=== PATIENT | male | born 1965 | race Caucasian/White ===

== ENCOUNTER 2024-11-22 13:09 | Emergency (ER) | payer MEDICAID ==
[~2024-11-22] VITALS: Ht 180.3 cm; Wt 78.0 kg
[~2024-11-22 13:09] MED LIST: APIX5TAB PO; CARV25TA47 PO; FURO40TA5 PO; GLIP5TAB22 PO; LISI-186 PO; METF-416 PO; SIMV-43 PO; SPIR25TA6 PO
[2024-11-22 13:11] VITALS: O2SAT 100
[2024-11-22 13:14] VITALS: BP 94/62; PULSE 80; RESP 18; TEMP 36.8; O2SAT 98
== END 2024-11-22 13:21 | disposition left against medical advice (07) ==
LOC: ER 13:09
DX: E31.9 Polyglandular dysfunction, unspecified (principal); I10 Essential (primary) hypertension; Z53.21 Procedure and treatment not carried out due to patient leaving prior to being seen by health care provider
CPT/HCPCS: 82962